=== PATIENT | male | born 1935 | race Caucasian/White ===

== ENCOUNTER 2018-05-16 11:17 | Observation (INO) ==
[2018-05-16 13:01] LABS: Basophils # 0.1 10*3/uL (0.0-0.2); Basophils % 0.3 % (0.0-0.8); Immature Granulocytes % 0.7 %; Immature Granulocytes Absolute 0.12 #; Lymphocytes # 1.6 10*3/uL (1.4-4.0); Lymphocytes % 9.2 % (21.2-54.2); Mean Corpuscular HGB Conc 34.9 GM/DL (32-36); Mean Corpuscular Hemoglobin 32 PG (27-34); Mean Corpuscular Volume 91.9 FL (87-102); Mean Platelet Volume 10.2 FL (9.6-12.0); Monocytes # 1.3 10*3/uL (0.11-0.8); Monocytes % 7.2 % (1.7-12.7); Neutrophils # 14.5 10*3/uL (1.4-7.4); Neutrophils % 82.6 % (38.7-73.9); Platelet Count 182 T/CUMM (130-400); Red Blood Count 4.68 MC/CUMM (3.8-5.5); Red Cell Distribution Width 12.7 % (9.3-17.3); White Blood Count 17.5 T/CUMM (4-12)
[2018-05-16 13:22] LABS: Albumin 3.4 G/DL (3.4-5.0); Bilirubin,Total 3.2 MG/DL (0.2-1.0); Calcium 8.9 MG/DL (8.5-10.1); INR 1.1; Osmolality,Calculated 278.8 MOS/KG (273-304); PT Patient Result 11.4 SECS; Partial Thromboplastin Time 27.9 SECS (0-40); Potassium 3.7 MMOL/L (3.5-5.1); Total Protein 6.3 G/DL (6.4-8.3)
[2018-05-16] MEDS ORDERED: DOCUSATE SODIUM 100 MG CAPSULE PO PRN (13:40)
[2018-05-16] MEDS ORDERED: ACETAMINOPHEN 325 MG TABLET PO PRN (13:40)
[2018-05-16] MEDS ORDERED: ONDANSETRON 4 MG/2 ML VIAL IV PRN (13:40)
[2018-05-16] MEDS ORDERED: BISACODYL 5 MG TABLET PO PRN (13:40)
[2018-05-16] MEDS ORDERED: ENOXAPARIN 40 MG/0.4 ML SYRINGE SUBCUT SCH (14:00)
[2018-05-16 14:08] LABS: Apearance,Urine Slightly Hazy (Clear); Bilirubin,Urine Negative (Negative); Blood, Urine Negative (Negative); Glucose,Urine (UA) Negative (Negative); Hyaline Casts,Urine 1 /LPF (0-3); Ketones,Urine Negative (Negative); Mucus,Urine Few /LPF (Occasional); Nitrite,Urine Negative (Negative); Protein,Urine Negative; RBC,Urine 3 /HPF (0-4); Squamous Epithelial Cell,Urine Occasional /HPF (0-10); Urine Color Amber (Yellow); Urine Specific Gravity 1.026 (1.001-1.035); WBC,Urine 5 /HPF (0-6)
[2018-05-16 14:11] LABS: Risk Ratio 3.1
[2018-05-16 14:20] LABS: Barbiturates Screen,Urine Negative (Negative); Benzodiazepines Screen,Urine Negative (Negative); Cannabinoid Screen,Urine Negative (Negative); Opiate Screen,Urine Negative (Negative); Phencyclidine Screen,Urine Negative (Negative)
[2018-05-16] MEDS ORDERED: SODIUM CHLORIDE 0.9% 1,000 ML IV STA (14:32)
[2018-05-16 16:00] LABS: Albumin 3.4 G/DL (3.4-5.0); Bilirubin,Direct 0.37 MG/DL (0.0-0.20); Bilirubin,Indirect 3.4 MG/DL (0.0-1.0); Bilirubin,Total 3.8 MG/DL (0.2-1.0); Total Protein 6.2 G/DL (6.4-8.3)
[2018-05-16] MEDS: LISINOPRIL 20 MG TABLET PO SCH (21:14)
[2018-05-16] MEDS: TAMSULOSIN 0.4 MG CAPSULE PO SCH (21:14)
[2018-05-17 05:23] LABS: Basophils # 0.1 10*3/uL (0.0-0.2); Basophils % 0.4 % (0.0-0.8); Eosinophils # 0.2 10*3/uL (0.0-0.87); Eosinophils % 1.2 % (0.00-10.9); Hematocrit 37.9 VOL% (42.0-52.0); Hemoglobin 13.1 GM/DL (14.0-18.0); Immature Granulocytes % 0.4 %; Immature Granulocytes Absolute 0.05 #; Lymphocytes # 2.3 10*3/uL (1.4-4.0); Mean Corpuscular HGB Conc 34.6 GM/DL (32-36); Mean Corpuscular Hemoglobin 32 PG (27-34); Mean Corpuscular Volume 91.8 FL (87-102); Mean Platelet Volume 10.2 FL (9.6-12.0); Monocytes # 1.4 10*3/uL (0.11-0.8); Monocytes % 10.1 % (1.7-12.7); Neutrophils # 9.6 10*3/uL (1.4-7.4); Neutrophils % 70.9 % (38.7-73.9); Platelet Count 152 T/CUMM (130-400); Red Blood Count 4.13 MC/CUMM (3.8-5.5); Red Cell Distribution Width 12.7 % (9.3-17.3); White Blood Count 13.5 T/CUMM (4-12)
[2018-05-17 05:47] LABS: Albumin 2.7 G/DL (3.4-5.0); Bilirubin,Total 3.9 MG/DL (0.2-1.0); Calcium 8.6 MG/DL (8.5-10.1); Potassium 3.7 MMOL/L (3.5-5.1)
[2018-05-17] MEDS ORDERED: LEVOTHYROXINE 75 MCG TABLET PO SCH (07:00)
[2018-05-17 07:59] VITALS: BP 112/62
[2018-05-17] MEDS: TAMSULOSIN 0.4 MG CAPSULE PO SCH (08:41)
[2018-05-17] MEDS: LISINOPRIL 20 MG TABLET PO SCH (08:41)
[2018-05-17] MEDS ORDERED: PANTOPRAZOLE 40 MG TABLET PO SCH (09:00)
[2018-05-17] MEDS ORDERED: CLOPIDOGREL 75 MG TABLET PO SCH (09:00)
[2018-05-17] MEDS ORDERED: ASPIRIN EC 81 MG TABLET PO SCH (09:00)
[2018-05-17] MEDS ORDERED: METOPROLOL SUCCINATE XL 100 MG TABLET PO SCH (09:00)
[2018-05-17] MEDS ORDERED: SIMVASTATIN 40 MG TABLET PO SCH (09:00)
[2018-05-17 11:00] LABS: Hepatitis A Ab IgM Quant 0.12 Index; Hepatitis A Ab IgM Result Negative (Negative); Hepatitis B Core IgM Quant 0.06 Index; Hepatitis B Core IgM Result Negative (Negative); Hepatitis B Surface Ag Quant 0.39 Index; Hepatitis B Surface Ag Result Negative (Negative); Hepatitis C Virus Ab Quant < 0.02 Index; Hepatitis C Virus Ab Result Negative (Negative)
== END 2018-05-17 12:35 | disposition home or self-care (01) ==
LOC: N.ED 11:17 → N.EDINP 11:17 → N.4E 16:19
PROVIDERS: ADMIT Internal Medicine; ATTEND Internal Medicine

== ENCOUNTER 2020-09-01 19:53 | Inpatient (IN) ==
[2020-09-01] MEDS ORDERED: PANTOPRAZOLE 40 MG VIAL IV STA (20:27)
[2020-09-01] MEDS ORDERED: ONDANSETRON 4 MG/2 ML VIAL IV ONE (20:27)
[2020-09-01] MEDS ORDERED: SODIUM CHLORIDE 0.9% 1,000 ML IV STA (20:27)
[2020-09-01 20:49] LABS: Basophils % 0.1 % (0.0-0.8); Hematocrit 46.9 VOL% (42.0-52.0); Hemoglobin 16.9 GM/DL (14.0-18.0); Immature Granulocytes % 0.6 %; Lymphocytes # 1.2 10*3/uL (1.4-4.0); Lymphocytes % 7.5 % (21.2-54.2); Mean Corpuscular Volume 89.3 FL (87-102); Mean Platelet Volume 9.4 FL (9.6-12.0); Monocytes % 6.7 % (1.7-12.7); Neutrophils % 85.1 % (38.7-73.9); Platelet Count 234 T/CUMM (130-400); Red Blood Count 5.25 MC/CUMM (3.8-5.5); Red Cell Distribution Width 12.1 % (9.3-17.3); White Blood Count 16.2 T/CUMM (4-12)
[2020-09-01 21:12] LABS: Albumin 3.8 G/DL (3.4-5.0); Bilirubin,Total 2.6 MG/DL (0.2-1.0); Calcium 8.9 MG/DL (8.5-10.1); Osmolality,Calculated 268.5 MOS/KG (273-304); Potassium 3.6 MMOL/L (3.5-5.1); Total Protein 7.4 G/DL (6.4-8.2)
[2020-09-01] MEDS ORDERED: cefTRIAXone 1,000 MG in SODIUM CHLORIDE 0.9% 100 ML IV STA (21:33)
[2020-09-01] MEDS ORDERED: DEXTROSE 50% 25 GM/50 ML VIAL IV PRN (21:44)
[2020-09-01] MEDS ORDERED: GLUCAGON 1 MG VIAL IM PRN (21:44)
[2020-09-01] MEDS ORDERED: PROMETHAZINE 25 MG/1 ML VIAL IM PRN (21:44)
[2020-09-01] MEDS ORDERED: ONDANSETRON 4 MG/2 ML VIAL IV PRN (21:44)
[2020-09-01] MEDS ORDERED: ENOXAPARIN 40 MG/0.4 ML SYRINGE SUBCUT SCH (22:00)
[2020-09-01] MEDS ORDERED: SODIUM PHOSPHATE ENEMA 133 ML BOTTLE RECTAL PRN (22:30)
[2020-09-02] MEDS: SODIUM CHLORIDE 0.9% 1,000 ML IV SCH ×2 (03:53→18:24)
[2020-09-02] MEDS: metroNIDAZOLE INJ 500 MG in PREMIX 1 EACH IV SCH ×4 (03:53→21:47)
[2020-09-02] MEDS ORDERED: INSULIN REGULAR 100 UNIT/ML SUBCUT SCH (07:30)
[2020-09-02 07:40] LABS: Basophils # 0.1 10*3/uL (0.0-0.2); Basophils % 0.2 % (0.0-0.8); Hematocrit 41.8 VOL% (42.0-52.0); Hemoglobin 15.2 GM/DL (14.0-18.0); Immature Granulocytes % 0.6 %; Immature Granulocytes Absolute 0.12 #; Lymphocytes # 1.7 10*3/uL (1.4-4.0); Lymphocytes % 8.4 % (21.2-54.2); Mean Corpuscular HGB Conc 36.4 GM/DL (32-36); Mean Corpuscular Volume 87.8 FL (87-102); Mean Platelet Volume 9.9 FL (9.6-12.0); Monocytes % 7.7 % (1.7-12.7); Neutrophils % 83.1 % (38.7-73.9); Platelet Count 226 T/CUMM (130-400); Red Blood Count 4.76 MC/CUMM (3.8-5.5); Red Cell Distribution Width 12.4 % (9.3-17.3); White Blood Count 20.7 T/CUMM (4-12)
[2020-09-02 07:59] LABS: Bilirubin,Total 3.3 MG/DL (0.2-1.0); Calcium 8.6 MG/DL (8.5-10.1); Osmolality,Calculated 272.2 MOS/KG (273-304); Potassium 4.4 MMOL/L (3.5-5.1)
[2020-09-02 08:00] LABS: Band Neutrophils 1 % (0-10); Lymphocytes 6 % (20-55); Segmented Neutrophils 88 % (50-85); Total Cells Counted 100
[2020-09-02 08:01] LABS: Hypochromasia Slight; Microcytosis 1+
[2020-09-02 08:02] LABS: Platelet Estimate Normal
[2020-09-02] MEDS ORDERED: LACTULOSE 20 GM/30 ML UDCUP PO PRN (10:02)
[2020-09-02] MEDS ORDERED: cefTRIAXone 1,000 MG in SODIUM CHLORIDE 0.9% 100 ML IV SCH (21:00)
[2020-09-03] MEDS: metroNIDAZOLE INJ 500 MG in PREMIX 1 EACH IV SCH (04:39)
[2020-09-03] MEDS: SODIUM CHLORIDE 0.9% 1,000 ML IV SCH (04:41)
[2020-09-03] MEDS ORDERED: INDOCYANINE GREEN 25 MG VIAL IV ONE (06:00)
[2020-09-03 06:06] LABS: Basophils # 0.1 10*3/uL (0.0-0.2); Basophils % 0.4 % (0.0-0.8); Eosinophils # 0.1 10*3/uL (0.0-0.87); Hematocrit 36.1 VOL% (42.0-52.0); Hemoglobin 12.7 GM/DL (14.0-18.0); Immature Granulocytes % 0.3 %; Immature Granulocytes Absolute 0.04 #; Lymphocytes # 2.2 10*3/uL (1.4-4.0); Lymphocytes % 17.9 % (21.2-54.2); Mean Corpuscular HGB Conc 35.2 GM/DL (32-36); Mean Corpuscular Volume 91.9 FL (87-102); Mean Platelet Volume 9.9 FL (9.6-12.0); Monocytes % 10.7 % (1.7-12.7); Neutrophils % 69.7 % (38.7-73.9); Platelet Count 166 T/CUMM (130-400); Red Blood Count 3.93 MC/CUMM (3.8-5.5); Red Cell Distribution Width 12.7 % (9.3-17.3); White Blood Count 12.4 T/CUMM (4-12)
[2020-09-03 06:43] LABS: Alanine Aminotransferase < 9 U/L (16-61); Albumin 2.6 G/DL (3.4-5.0); Alkaline Phosphatase 40 U/L (45-117); Aspartate Amino Transferase 14 U/L (0-37); Blood Urea Nitrogen 24 MG/DL (7-18); Carbon Dioxide 27 MMOL/L (21-32); Estimated Glom Filtration Rate 66 ML/MIN; Glucose 103 MG/DL (74-106); Potassium 3.7 MMOL/L (3.5-5.1); Sodium 136 MMOL/L (136-145); Total Protein 5.2 G/DL (6.4-8.2)
[2020-09-03] MEDS ORDERED: CEFUROXIME 250 MG TABLET PO SCH (09:00)
[2020-09-03] MEDS ORDERED: ASPIRIN EC 81 MG TABLET PO SCH (09:00)
[2020-09-03] MEDS ORDERED: lisinopriL 2.5 MG TABLET PO SCH (11:00)
[2020-09-03] MEDS ORDERED: SIMVASTATIN 40 MG TABLET PO SCH (11:00)
[2020-09-03] MEDS ORDERED: METOPROLOL SUCCINATE XL 100 MG TABLET PO SCH (11:00)
[2020-09-03] MEDS ORDERED: amLODIPine 2.5 MG TABLET PO SCH (11:00)
[2020-09-03 11:25] VITALS: BP 129/61
[2020-09-03] MEDS ORDERED: TAMSULOSIN 0.4 MG CAPSULE PO SCH (21:00)
[2020-09-04] MEDS ORDERED: LEVOTHYROXINE 75 MCG TABLET PO SCH (06:30)
[2020-09-04] MEDS ORDERED: MULTIVITAMIN (CENTRUM) TABLET PO SCH (09:00)
== END 2020-09-03 13:40 | disposition home or self-care (01) | DRG 446 ==
LOC: N.EDINP 19:53 → N.ED 19:53 → SUATTDRO 21:44 → N.EDINP 23:22 → N.3E 09-02 00:52
PROVIDERS: ADMIT Internal Medicine; ATTEND Internal Medicine

== ENCOUNTER 2020-09-06 05:58 | Inpatient (IN) ==
[2020-09-06] MEDS ORDERED: DIAZEPAM 5 MG TABLET PO ONE (06:37)
[2020-09-06] MEDS ORDERED: ACETAMINOPHEN 500 MG TABLET PO ONE (06:37)
[2020-09-06] MEDS ORDERED: GABAPENTIN 400 MG CAPSULE PO ONE (06:37)
[2020-09-06] MEDS ORDERED: FAMOTIDINE 20 MG TABLET PO ONE (06:37)
[2020-09-06] MEDS ORDERED: INDOCYANINE GREEN 25 MG VIAL IV ONE ×2 (06:39→06:42)
[2020-09-06] MEDS ORDERED: GABAPENTIN 400 MG CAPSULE ONE (06:42)
[2020-09-06] MEDS ORDERED: DIAZEPAM 5 MG TABLET ONE (06:42)
[2020-09-06] MEDS ORDERED: FAMOTIDINE 20 MG TABLET ONE (06:42)
[2020-09-06] MEDS ORDERED: ACETAMINOPHEN 500 MG TABLET ONE (06:42)
[2020-09-06] MEDS ORDERED: TISSUE ADHESIVE 1 EACH APPLICATOR TOP ONE (06:47)
[2020-09-06] MEDS ORDERED: BUPIVACAINE MPF 0.25% 30 ML VIAL ONE (06:47)
[2020-09-06] MEDS ORDERED: LIDOCAINE 1%/EPI INJ 20 ML VIAL ONE (06:48)
[2020-09-06] MEDS ORDERED: fentaNYL 100 MCG/2 ML VIAL ONE (06:49)
[2020-09-06] MEDS ORDERED: LACTATED RINGERS 1,000 ML IV SCH (07:00)
[2020-09-06] MEDS ORDERED: SEVOFLURANE 1 UNIT/15 MINUTE INH ONE ×7 (07:00→08:49)
[2020-09-06] MEDS ORDERED: ROCURONIUM 50 MG/5 ML VIAL IV ONE (07:00)
[2020-09-06] MEDS ORDERED: ETOMIDATE 40 MG/20 ML VIAL IV ONE (07:00)
[2020-09-06] MEDS ORDERED: LIDOCAINE 2% 5 ML VIAL ONE (07:00)
[2020-09-06] MEDS ORDERED: propofoL 200 MG/20 ML VIAL IV ONE (07:28)
[2020-09-06] MEDS ORDERED: ceFAZolin 1,000 MG VIAL ONE (07:29)
[2020-09-06] MEDS ORDERED: PHENYLEPHRINE 1 MG/10 ML SYRINGE IV ONE (07:38)
[2020-09-06] MEDS ORDERED: ONDANSETRON 4 MG/2 ML VIAL ONE (08:46)
[2020-09-06] MEDS ORDERED: DEXAMETHASONE 4 MG/1 ML VIAL ONE (08:46)
[2020-09-06] MEDS ORDERED: LACTATED RINGERS 1,000 ML IV ONE (08:48)
[2020-09-06] MEDS ORDERED: NEOSTIGMINE 10 MG/10 ML VIAL ONE (08:49)
[2020-09-06] MEDS ORDERED: GLYCOPYRROLATE 0.4 MG/2 ML VIAL ONE (08:49)
[2020-09-06] MEDS ORDERED: ONDANSETRON 4 MG/2 ML VIAL IV PRN ×2 (09:57→12:07)
[2020-09-06] MEDS ORDERED: PROMETHAZINE 25 MG/1 ML VIAL IM PRN (12:07)
[2020-09-06] MEDS ORDERED: HYDROmorphone 2 MG/1 ML VIAL IV PRN (12:07)
[2020-09-06] MEDS ORDERED: ASPIRIN EC 81 MG TABLET PO SCH (12:07)
[2020-09-06 12:24] LABS: Basophils % 0.3 % (0.0-0.8); Eosinophils % 0.3 % (0.00-10.9); Hematocrit 41.9 VOL% (42.0-52.0); Hemoglobin 14.4 GM/DL (14.0-18.0); Immature Granulocytes % 0.6 %; Immature Granulocytes Absolute 0.07 #; Lymphocytes # 0.8 10*3/uL (1.4-4.0); Lymphocytes % 7.4 % (21.2-54.2); Mean Corpuscular HGB Conc 34.4 GM/DL (32-36); Mean Corpuscular Volume 92.9 FL (87-102); Mean Platelet Volume 9.2 FL (9.6-12.0); Monocytes % 1.9 % (1.7-12.7); Neutrophils % 89.5 % (38.7-73.9); Platelet Count 221 T/CUMM (130-400); Red Blood Count 4.51 MC/CUMM (3.8-5.5); Red Cell Distribution Width 12.5 % (9.3-17.3); White Blood Count 10.9 T/CUMM (4-12)
[2020-09-06] MEDS: CEFUROXIME 250 MG TABLET PO SCH ×2 (12:47→22:23)
[2020-09-06] MEDS: LACTATED RINGERS 1,000 ML IV SCH ×2 (12:48→22:25)
[2020-09-06] MEDS: METOPROLOL SUCCINATE XL 100 MG TABLET PO SCH (12:48)
[2020-09-06 12:50] LABS: Albumin 3.2 G/DL (3.4-5.0); Bilirubin,Direct 0.43 MG/DL (0.0-0.20); Bilirubin,Total 2.1 MG/DL (0.2-1.0); Calcium 8.8 MG/DL (8.5-10.1); Osmolality,Calculated 266.5 MOS/KG (273-304); Potassium 4.2 MMOL/L (3.5-5.1); Total Protein 6.7 G/DL (6.4-8.2)
[2020-09-06] MEDS: TAMSULOSIN 0.4 MG CAPSULE PO SCH (22:23)
[2020-09-07] MEDS ORDERED: ENOXAPARIN 40 MG/0.4 ML SYRINGE SUBCUT SCH (03:50)
[2020-09-07] MEDS: LACTATED RINGERS 1,000 ML IV SCH (06:03)
[2020-09-07 06:16] LABS: Basophils % 0.1 % (0.0-0.8); Hematocrit 37.7 VOL% (42.0-52.0); Hemoglobin 13.7 GM/DL (14.0-18.0); Immature Granulocytes % 0.5 %; Immature Granulocytes Absolute 0.07 #; Lymphocytes # 1.9 10*3/uL (1.4-4.0); Lymphocytes % 13.9 % (21.2-54.2); Mean Corpuscular HGB Conc 36.3 GM/DL (32-36); Mean Corpuscular Volume 90.2 FL (87-102); Mean Platelet Volume 10.1 FL (9.6-12.0); Monocytes % 9.2 % (1.7-12.7); Neutrophils % 76.3 % (38.7-73.9); Platelet Count 234 T/CUMM (130-400); Red Blood Count 4.18 MC/CUMM (3.8-5.5); Red Cell Distribution Width 12.3 % (9.3-17.3); White Blood Count 13.7 T/CUMM (4-12)
[2020-09-07 06:45] LABS: Albumin 2.7 G/DL (3.4-5.0); Bilirubin,Direct 0.26 MG/DL (0.0-0.20); Bilirubin,Total 1.9 MG/DL (0.2-1.0); Calcium 9.1 MG/DL (8.5-10.1); Osmolality,Calculated 269.2 MOS/KG (273-304); Potassium 4.1 MMOL/L (3.5-5.1); Total Protein 5.9 G/DL (6.4-8.2)
[2020-09-07] MEDS ORDERED: LEVOTHYROXINE 75 MCG TABLET PO SCH (07:00)
[2020-09-07] MEDS ORDERED: amLODIPine 2.5 MG TABLET PO SCH (09:00)
[2020-09-07] MEDS ORDERED: MULTIVITAMIN (CENTRUM) TABLET PO SCH (09:00)
[2020-09-07] MEDS: CEFUROXIME 250 MG TABLET PO SCH (09:01)
[2020-09-07] MEDS: TAMSULOSIN 0.4 MG CAPSULE PO SCH (09:01)
[2020-09-07] MEDS: METOPROLOL SUCCINATE XL 100 MG TABLET PO SCH (09:01)
[2020-09-07 12:08] VITALS: BP 134/72
[2020-09-07] MEDS ORDERED: SIMVASTATIN 40 MG TABLET PO SCH (20:00)
== END 2020-09-07 14:09 | disposition home or self-care (01) | DRG 418 ==
LOC: N.OR 05:58 → N.SDSINP 05:59 → N.3E 11:59
PROVIDERS: ADMIT Surgery; ATTEND Surgery